=== PATIENT | female | born 1960 | race Caucasian/White ===

== ENCOUNTER 2024-06-25 08:47 | Emergency (ER) | payer OTHER ==
[~2024-06-25] VITALS: Ht 165.1 cm; Wt 105.2 kg
[2024-06-25] VITALS (8 sets, daily range): BP systolic 132–150; BP diastolic 82–101
== END 2024-06-25 11:22 | disposition home or self-care (01) | DRG 563 ==
LOC: ED 08:47
DX: S92.352A Displaced fracture of fifth metatarsal bone, left foot, initial encounter for closed fracture (principal); W18.30XA Fall on same level, unspecified, initial encounter; Y92.833 Campsite as the place of occurrence of the external cause